=== PATIENT | female | born 1955 | race Caucasian/White ===

== ENCOUNTER 2021-12-02 17:20 | Inpatient (IN) | payer BC, MEDICARE ==
[~2021-12-02] VITALS: Ht 172.7 cm; Wt 118.4 kg
[2021-12-02] MEDS ORDERED: ONDANSETRON 4 MG/2 ML (SDV) Z0FRAN IV PRN (18:15)
[2021-12-02] MEDS ORDERED: ACETAMINOPHEN 325 MG TABLET PO PRN (18:15)
[2021-12-02] MEDS ORDERED: MELATONIN 3 MG TABLET PO PRN (18:15)
[2021-12-02] MEDS ORDERED: ANTACID SUSP 30 ML UDC (MYLANTA) PO PRN (18:15)
[2021-12-02] MEDS ORDERED: diphenhydrAMINE 25 MG TAB (BENADRYL) PO PRN (18:15)
[2021-12-02] MEDS ORDERED: polyethylene glycoL POWDER 17 GM (MIRALAX) PACK PO PRN (18:15)
[2021-12-02] MEDS ORDERED: ONDANSETRON 4 MG (ZOFRAN) ORAL DISSOLVE TAB PO PRN (18:15)
[2021-12-02 21:30] VITALS: BP 125/66
[2021-12-02] MEDS ORDERED: ATOR20TA66 PO (21:42)
[2021-12-02] MEDS ORDERED: ROPI1TAB PO (21:42)
[2021-12-02] MEDS ORDERED: INSU100V5 SQ (21:42)
[2021-12-02] MEDS ORDERED: GABA300S2 PO (21:42)
[2021-12-02 21:45] VITALS: BP 125/63
[2021-12-02] MEDS: GABAPENTIN 300 MG (NEURONTIN) CAP PO SCH (23:14)
[2021-12-02] MEDS: SENNOSIDES 8.6 MG (SENOKOT) TAB PO SCH (23:14)
[2021-12-02] MEDS: DOCUSATE SODIUM 100 MG (COLACE) CAP PO SCH (23:14)
[2021-12-02] MEDS: inSUlin ASPART (NovoLOG) 1 UNIT/0.01 ML (CHARGE PER UNIT) SC SCH (23:15)
[2021-12-03] VITALS (16 sets, daily range): BP systolic 106–128; BP diastolic 46–76
[2021-12-03 05:15] LABS: BASOPHILS % (AUTO) 0 % (0-10); EOSINOPHILS # (AUTO) 0.1 10^3/uL (0.0-0.3); EOSINOPHILS % (AUTO) 1 % (0-10); HEMATOCRIT 43 % (35-52); HEMOGLOBIN 12.4 g/dL (11.5-16.0); LYMPHOCYTES # (AUTO) 1.9 10^3/uL (1.0-4.0); LYMPHOCYTES % (AUTO) 24 % (12-44); MEAN CORPUSCULAR HEMOGLOBIN 25 pg (25-34); MEAN CORPUSCULAR HGB CONC 29 g/dL (32-36); MEAN CORPUSCULAR VOLUME 87 fL (80-99); MEAN PLATELET VOLUME 10.3 fL (9.0-12.2); MONOCYTES # (AUTO) 0.5 10^3/uL (0.0-1.0); MONOCYTES % (AUTO) 7 % (0-12); NEUTROPHILS # (AUTO) 5.1 10^3/uL (1.8-7.8); NEUTROPHILS % (AUTO) 67 % (42-75); PLATELET COUNT 224 10^3/uL (130-400); WHITE BLOOD COUNT 7.7 10^3/uL (4.3-11.0)
[2021-12-03 05:31] LABS: POTASSIUM 4.3 MMOL/L (3.6-5.0)
[2021-12-03 05:32] LABS: CALCIUM 8.1 MG/DL (8.5-10.1)
[2021-12-03 05:36] LABS: CREATININE SERUM 0.81 MG/DL (0.60-1.30)
[2021-12-03 05:38] LABS: MAGNESIUM 2.1 MG/DL (1.6-2.4)
[2021-12-03] MEDS: KCL 20 MEQ TAB (K-DUR) PO SCH (06:36)
[2021-12-03] MEDS: inSUlin ASPART (NovoLOG) 1 UNIT/0.01 ML (CHARGE PER UNIT) SC SCH ×4 (06:36→20:45)
[2021-12-03] MEDS: POTASSIUM CL 10MEQ/50ML IVPB 50 ML IV SCH (06:36)
[2021-12-03] MEDS: MAGNESIUM 1 GM/100 ML IVPB 100 ML IV SCH (06:36)
[2021-12-03 07:23] LABS: TRIGLYCERIDES 90 MG/DL (<150); VLDL CHOLESTEROL 18 MG/DL (5-40)
[2021-12-03 07:28] LABS: CHOLESTEROL 120 MG/DL (< 200)
[2021-12-03 07:29] LABS: HDL CHOLESTEROL 32 MG/DL (40-60)
[2021-12-03] MEDS ORDERED: NS IV 1000 ML 1,000 ML ONE (08:35)
[2021-12-03] MEDS ORDERED: LIDOCAINE 1% INJ 20 ML 20 ML VIAL ONE (08:35)
[2021-12-03] MEDS ORDERED: HEParin (CATH LAB) 2,000 ML IV ONE (08:35)
[2021-12-03] MEDS ORDERED: fentaNYL INJ 100 MCG/2 ML AMP ONE (08:41)
[2021-12-03] MEDS ORDERED: MIDAZOLAM 5 MG/5 ML (VERSED) VIAL ONE (08:41)
[2021-12-03] MEDS ORDERED: VERAPAMIL 5 MG/2 ML (CALAN) VIAL IV ONE (08:41)
[2021-12-03] MEDS ORDERED: HEParin 1000 UNIT/ML (10ML VIAL) FOR BOLUS ONE (08:41)
[2021-12-03] MEDS ORDERED: NITRO DRIP 25000 MCG/D5W 250 ML IV ONE (08:42)
--- NOTE | 2021-12-03 08:43 | Consultation-Cardiology ---
HPI-Cardiology Cardiology Consultation: Date of Consultation 12/03/2021 Date of Admission 12/02/2021 Attending Physician Cuca Hood MD Admitting Physician Dameon Finley DO Consulting Physician WHIT BAEZ JR, MD HPI: Time Seen by a Provider: 08:41 Chief Complaint: Reason for consultation: Non-ST elevation myocardial infarction. I had the pleasure of seeing [place] on the cardiac stepdown unit at [facility] in [place], [place] this morning. She has no previously known history of coronary artery disease but does have cardiac risk factors of type 2 diabetes me llitus, hyperlipidemia and cigarette smoking. She was recently told to start taking atorvastatin but has not yet started this medication. She has chronic dyspnea on exertion which she relates is due to her cigarette smoking and underlying chronic obstructive pulmonary disease. 3 days ago she developed substernal chest discomfort. She describes this as a pain in the center of her chest. She denies radiation or associated symptoms. Nothing seemed to make this better or worse. She did not seek immediate medical attention. Yesterday the chest discomfort persisted so she went to the emergency room in [place], [place]. She was apparently found to have an elevated troponin level and was sent to our hospital for further evaluation. In the outside emergency room she was given 1 sublingual nitroglycerin and her chest discomfort resolved. Last evening while she was in bed at our hospital, she had another episode of chest pain but did not tell the nurse. The second episode of chest pain resolved spontaneously after short period of time. She has occasional paroxysmal nocturnal dyspnea but denies orthopnea. She does not sleep well due to restless leg syndrome and peripheral neuropathy. She denies palpitations, lightheadedness, or syncope. She has chronic, mild bilateral lower extremity edema which has been unchanged. Because of the non-ST elevation myocardial infarction, a cardiology consultation was requested. Certain portions of this document may have been dictated utilizing voice recognition technology. Inherent to this technology, typographical and grammatical errors may exist. As much as I am diligent to identify and correct these mistakes, some errors may remain in the document. Review of Systems-Cardiology Review of Systems Other comments Review of 10 organ systems is as per the history of present illness, otherwise negative. STJ-Njdiux-Rhoroz Hx Patient Social History Marrital Status: Smoking Status: Current Everyday Smoker Have you traveled recently?: No Alcohol Use?: No Pt feels they are or have been: Yes Tobacco type used: Cigarettes Immunizations Up To Date Date of Influenza Vaccine: Sep 18, 2021 Past Medical History PMH As described under Assessment. Family Medical History Family Medical History: The patient does not know of any family history of premature coronary artery disease in first-degree relatives. She believes her father had a myocardial infarction but he was in his 70s. Allergies and Home Medications Allergies Coded Allergies: No Allergy Information Available (Unverified , 12/02/21) Patient Home Medication List Home Medication List Reviewed: Yes Atorvastatin Calcium (Atorvastatin Calcium) 20 Mg Tablet, 20 MG PO DAILY, (Reported) Entered as Reported by: Anna Cruz on 12/02/212141 Last Action: New Order Gabapentin (Gabapentin) 300 Mg/6 Ml Solution, 900 MG PO HS, (Reported) Entered as Reported by: Anna Cruz on 12/02/212141 Last Action: New Order Insulin Determir (Levemir) 1,000 Units/10 Ml Soln, 20 UNITS SQ HS, (Reported) Entered as Reported by: Anna Cruz on 12/02/212141 Last Action: New Order Ropinirole HCl (Ropinirole HCl) 1 Mg Tablet, 1 MG PO DAILY, (Reported) Entered as Reported by: Anna Cruz on 12/02/212141 Last Action: New Order Exam Vital Signs Vital Signs Date Time Temp Pulse Resp B/P (MAP) Pulse Ox O2 Delivery O2 Flow Rate FiO2 12/03/21 08:00 36.3 73 24 116/66 (83) 100 Nasal Cannula 2.00 Physical Exam General: Alert. No acute distress. Well nourished and appears stated age. She is morbidly obese. Eye: Extraocular movements are intact. Conjunctivae are clear. There are no xanthelasma. HENT: Normocephalic. Atraumatic. Carotid pulsations 2/2 without bruits. Neck: Jugular venous pressure does not appear elevated. No thyromegaly a ppreciated. Respiratory: Lungs are clear to auscultation. Respirations are non-labored. Breath sounds are equal. Symmetrical chest wall expansion. Cardiovascular: Normal rate. Regular rhythm. No murmur. No gallop. Point of maximal impulse is not appear displaced. Good pulses equal in all extremities. No edema. Gastrointestinal: Soft. Normal bowel sounds. Skin: Skin turgor is normal. There is no pallor. Musculoskeletal: No kyphosis or scoliosis appreciated. Neurologic: Alert and oriented to person, place, time. Cranial nerves 3-12 appear grossly intact. The patient has good motor tone strength in the upper and lower extremities bilaterally. Psychiatric: Cooperative. Appropriate mood & affect. Labs Laboratory Tests Test 12/02/21 21:37 12/02/21 23:20 12/03/21 05:05 Range/Units Glucometer 164 H 70-110 MG/DL Troponin I 6.194 *H <0.028 NG/ML White Blood Count 7.7 4.3-11.0 10^3/uL Red Blood Count 4.99 3.80-5.11 10^6/uL Hemoglobin 12.4 11.5-16.0 g/dL Hematocrit 43 35-52 % Mean Corpuscular Volume 87 80-99 fL Mean Corpuscular Hemoglobin 25 25-34 pg Mean Corpuscular Hemoglobin Concent 29 L 32-36 g/dL Red Cell Distribution Width 15.6 H 10.0-14.5 % Platelet Count 224 130-400 10^3/uL Mean Platelet Volume 10.3 9.0-12.2 fL Immature Granulocyte % (Auto) 0 % Neutrophils (%) (Auto) 67 42-75 % Lymphocytes (%) (Auto) 24 12-44 % Monocytes (%) (Auto) 7 0-12 % Eosinophils (%) (Auto) 1 0-10 % Basophils (%) (Auto) 0 0-10 % Neutrophils # (Auto) 5.1 1.8-7.8 10^3/uL Lymphocytes # (Auto) 1.9 1.0-4.0 10^3/uL Monocytes # (Auto) 0.5 0.0-1.0 10^3/uL Eosinophils # (Auto) 0.1 0.0-0.3 10^3/uL Basophils # (Auto) 0.0 0.0-0.1 10^3/uL Immature Granulocyte # (Auto) 0.0 0.0-0.1 10^3/uL Sodium Level 140 135-145 MMOL/L Potassium Level 4.3 3.6-5.0 MMOL/L Chloride Level 104 98-107 MMOL/L Carbon Dioxide Level 28 21-32 MMOL/L Anion Gap 8 5-14 MMOL/L Blood Urea Nitrogen 13 7-18 MG/DL Creatinine 0.81 0.60-1.30 MG/DL Estimat Glomerular Filtration Rate 70 BUN/Creatinine Ratio 16 Glucose Level 144 H 70-105 MG/DL Calcium Level 8.1 L 8.5-10.1 MG/DL Magnesium Level 2.1 1.6-2.4 MG/DL Triglycerides Level 90 <150 MG/DL Cholesterol Level 120 < 200 MG/DL LDL Cholesterol Direct 74 1-129 MG/DL VLDL Cholesterol 18 5-40 MG/DL HDL Cholesterol 32 L 40-60 MG/DL Radiology ECHOCARDIOGRAM (12/03/2021): 1. This is a technically difficult study due to poor image quality secondary to patient's body habitus. 2. Left ventricle: The cavity size is normal. Wall thickness is normal. Systolic function is normal. The estimated ejection fraction is 55-60%. Regional wall motion abnormalities cannot be excluded due to poor endocardial definition. Left ventricular diastolic function parameters are normal. 3. Pulmonary arteries: The pulmonary artery pressure cannot be estimated on this study due to inadequate tricuspid regurgitant envelope. ECG Impression ECG Comment Pending. Diagnosis/Problems Diagnosis/Problems (1) Non-ST elevation myocardial infarction (NSTEMI), initial care episode Assessment & Plan: She appears to be suffering a non-ST elevation myocardial infarction. Her chest discomfort is now resolved. Her echocardiogram shows normal ejection fraction. I recommend further evaluation with a cardiac catheterization which we will go ahead and proceed with this morning. I have explained the benefits and risks of the procedure to the patient and she is in agreement to proceed. She will be placed on the usual guideline directed medical therapy. (2) Mixed hyperlipidemia Assessment & Plan: A lipid panel has been ordered and is pending. I will start her on intensive dose statin medication due to the acute myocardial infarction. (3) Morbid obesity Assessment & Plan: She needs to work on weight loss. (4) Cigarette smoker Assessment & Plan: She needs to work on smoking cessation. She was counseled in this regard. She states that she has recently cut down on smoking because she just has not felt like smoking. (5) Type 2 diabetes mellitus with complication Assessment & Plan: This will be managed by the hospitalist. A hemoglobin A1c is pending. (6) Chronic obstructive pulmonary disease Assessment & Plan: I suspect this is what is causing the patient's dyspnea. Chest x-ray is pending WHIT BAEZ JR, MD Dec 03, 2021 08:43
[2021-12-03] MEDS: SENNOSIDES 8.6 MG (SENOKOT) TAB PO SCH ×2 (08:48→19:56)
[2021-12-03] MEDS: DOCUSATE SODIUM 100 MG (COLACE) CAP PO SCH ×2 (08:48→19:55)
--- NOTE | 2021-12-03 09:04 | Diagnostic Imaging Report ---
EXAMINATION: PA and lateral chest at 8:53 AM INDICATION: Chest pain There are no prior studies available for comparison. The heart size is at the upper limits of normal or slightly enlarged. The central pulmonary vascularity is somewhat prominent but there is no evidence for failure, pneumonia or for a pleural effusion. The mediastinum is not widened. The osseous structures are intact. IMPRESSION: There is borderline cardiomegaly but there is no evidence for an acute cardiopulmonary abnormality. Dictated by: Dictated on workstation # [id number]
[2021-12-03] MEDS ORDERED: ASPIRIN E.C. 81 MG (ECOTRIN) TAB PO ONE (09:15)
[2021-12-03] MEDS ORDERED: NS IV 1000 ML 1,000 ML IV ONE (09:15)
--- NOTE | 2021-12-03 09:46 | Pre-Op Note & Conscious Sedat ---
Pre-Operative Progress Note H&P Reviewed The H&P was reviewed, patient examined and no changes noted. Date H&P Reviewed: Dec 03, 2021 Time H&P Reviewed: 09:46 Pre-Op Diagnosis: Non-ST elevation myocardial infarction Conscious Sedation Pre-Proced ASA Score 3 For ASA 3 and 4: Consider anesthesia and medical clearance. Also, for patients with a history of failed moderate sedation consider anesthesia. Airway Lungs Heart ASA score ASA 1: a normal healthy patient ASA 2: a patient with a mild systemic disease (mid diabetes, controlled hypertension, obesity ASA 3: a patient with a severe systemic disease that limits activity (angina, COPD, prior Myocardial infarction) ASA 4: a patient with an incapacitating disease that is a constant threat to life (CHF, renal failure) ASA 5: a moribund patient not expected to survive 24 hrs. (ruptured aneurysm) ASA 6: a declared brain- patient whose organs are being harvested. For emergent operations, add the letter E after the classification Mallampati Classification Grade 2 Sedation Plan Analgesia, Amnesia, Plan communicated to team members, Discussed options with patient/fam, Discussed risks with patient/fam The patient is an appropriate candidate to undergo the planned procedure, sedation, and anesthesia. The patient immediately re-assessed prior to indication. WHIT BAEZ JR, MD Dec 03, 2021 09:46
[2021-12-03] MEDS ORDERED: TICAGRELOR 90 MG TABLET (BRILINTA) PO ONE (10:17)
[2021-12-03] MEDS ORDERED: PATIENT MAY USE OWN MEDS, ALL PO SCH (10:45)
[2021-12-03] MEDS ORDERED: NS IV 1000 ML 1,000 ML IV SCH (10:45)
--- NOTE | 2021-12-03 10:48 | Cardiac Cath Report ---
CARDIAC CATHETERIZATION DATE OF PROCEDURE: 12/03/2021 INDICATION: Non-ST elevation myocardial infarction. HISTORY: The patient is a 66 year old female with no previously known history of coronary artery disease. She presented to an outside hospital with a 1 day history of chest pain. She was found to have an elevated troponin level and was transferred to our hospital for further treatment and evaluation. Overnight, she had another episode of chest pain that resolved spontaneously. Her troponin level in our hospital was also elevated consistent with a non-ST elevation myocardial infarction. She is now referred for further evaluation with a cardiac catheterization. PROCEDURES PERFORMED: 1. Left heart catheterization with hemodynamic measurements. 2. Diagnostic diomede coronary angiography. 3. Drug-eluting stent placement from the proximal down to the mid right coronary artery for acute non-ST elevation myocardial infarction. PROCEDURE DESCRIPTION: After informed consent and in the fasting state, left heart catheterization was performed through the right radial artery utilizing a 6 Kosovan system by percutaneous approach. Standard 5 Kosovan Judi catheters were utilized for the diagnostic portion of the procedure. A 6 Kosovan JR4 guide catheter was utilized for the percutaneous coronary intervention. All catheters were exchanged over a guidewire. Following the procedure, a vascular band was applied to the radial artery access site and the sheath was removed with good hemostasis. RESULTS: HEMODYNAMICS: The aortic pressure was 124/51 mmHg. The left ventricular pressure was 130/0 mmHg with a left ventricular end-diastolic pressure of 21 mmHg. There was no significant pressure gradient upon pullback across aortic valve. CORONARY ANGIOGRAPHY: Left main coronary artery: Free of significant disease. Left anterior descending coronary artery: There was a 70% stenosis in the mid segment with DEYANIRA-3 flow. There were [id number] collaterals seen filling the distal right coronary artery. Left circumflex coronary artery: Free of significant disease. Ramus intermedius: There was a ramus intermedius branch which was free of significant disease. Right coronary artery: Dominant and totally occluded proximally with evidence of thrombus and DEYANIRA 0 flow. This was most likely of the ischemia related vessel for the non-ST elevation myocardial infarction. Once the vessel was open, it became apparent there was a 40% stenosis in the midsegment. There was a 70% stenosis in the distal segment just distal to the takeoff of the posterior descending artery. This was essentially a bifurcation lesion with a Green classification of 0, 1, 0. However, in this area, the vessel was approximately 2 mm in maximal diameter. PERCUTANEOUS CORONARY INTERVENTION: Percutaneous coronary intervention was carried out on the right coronary artery through a 6 Kosovan FL 4 guide catheter. The lesion was successfully crossed with a Whisper medium support guidewire. I subsequently performed: Angioplasty with a 2.5 x 12 mm Trek balloon at a pressure up to 10 batool for several inflations. Flow was restored. I subsequently deployed a 3 x 23 mm drug-eluting Xience Skypoint stent and a pressure of 20 batool. Following placement of the stent, there appeared to be a possible dissection just distal to the distal edge of the stent. I deployed an additional 3 x 12 mm drug-eluting Xience Skypoint stent overlapping the distal edge of the previously placed stent at a pressure of 16 batool. I then postdilated the overlapped segment with the stent balloon at a pressure of 20 batool. Following stent placement, there was 0% residual stenosis with DEYANIRA-3 flow. IMPRESSION: 1. Normal central aortic pressure with elevated left ventricular end-diastolic pressure. 2. The right coronary artery was totally occluded proximally with hypertensive thrombus and DEYANIRA 0 flow. This was the ischemia related vessel for the acute, non-ST elevation myocardial infarction. 3. Status post drug-eluting stent placement to the mid right coronary artery with a 3 x 23 mm Xience Skypoint stent and a 3 x 12 mm Xience Skypoint stent with both stents being overlapped with 0% residual stenosis and DEYANIRA-3 flow. 4. There is moderate to severe residual stenosis in the mid left anterior descending coronary artery and distal right coronary artery as outlined above. The lesion in the left anterior descending coronary artery may need to be addressed at a later point in time. I did not perform intervention on this lesion today because the patient was becoming restless on the cardiac catheterization laboratory table. The lesion in the right coronary artery may be too small for revascularization. 5. The patient is known to have normal left ventricular systolic function with an estimated ejection fraction of 55-60% by echocardiogram performed prior to this procedure. Certain portions of this document may have been dictated utilizing voice recognition technology. Inherent to this technology, typographical and grammatical errors may exist. As much as I am diligent to identify and correct these mistakes, some errors may remain in the document. WHIT BAEZ JR, MD Dec 03, 2021 10:48
[2021-12-03] MEDS ORDERED: GABA300C PO (14:02)
[2021-12-03] MEDS ORDERED: HUM100VI15 SQ (14:02)
--- NOTE | 2021-12-03 20:13 | History & Physical-Hospitalist ---
History of Present Illness HPI/Chief Complaint Gia Wilder is a 66 year old female with PMH HTN, HLD, T2DM, CAD s/p CABG, tobacco abuse, obesity, who presented with chest pain. She described pressure in the center of her chest without radiation. She denies shortness of breath and cough. She denies palpitations. She denies diaphoresis. She denies nausea and vomiting. She went to the [facility] ER and was found to have an elevated troponin. She was transferred to [facility] for ongoing medical care. Source: patient Exam Limitations: no limitations Date Seen 12/03/21 Time Seen by a Provider: 09:00 Attending Physician Corwin Kaufman MD PCP Dameon Finley DO Referring Physician Date of Admission Dec 02, 2021 at 21:20 Home Medications & Allergies Home Medications Reviewed patient Home Medication Reconciliation performed by pharmacy medication reconciliations furniture technician and/or nursing. Patients Allergies have been reviewed. Allergies Allergies Coded Allergies metformin (Verified Allergy, Unknown, 12/03/21) tramadol (Verified Allergy, Unknown, Itching, 12/03/21) Past Wlcoggs-Lxerkz-Kxunqn Hx Patient Social History Marrital Status: Tobacco Use?: Yes Tobacco type used: Cigarettes Smoking Status: Current Everyday Smoker Smokeless Tobacco Frequency: Current Everyday User Use of E-Cig and/or Vaping dev: No Substance use?: No Alcohol Use?: No Pt feels they are or have been: Yes Immunizations Up To Date Date of Influenza Vaccine: Sep 18, 2021 Current Status status: No status: No Advance Directives: No Communicates: Verbally Primary Language: Omani Preferred Spoken Language: Omani Is interpretation needed?: No Sensory deficits: Vision impairment Implanted or Applied Medical D: None Family Medical History No Pertinent Family Hx Review of Systems Constitutional: no symptoms reported EENTM: no symptoms reported Respiratory: no symptoms reported Cardiovascular: chest pain Gastrointestinal: no symptoms reported Genitourinary: no symptoms reported Musculoskeletal: no symptoms reported Skin: no symptoms reported Psychiatric/Neurological: No Symptoms Reported Physical Exam Physical Exam Vital Signs Vital Signs - First Documented 12/02/21 12/03/21 21:30 00:00 Temp 36.7 Pulse 68 Resp 26 B/P (MAP) 125/66 (85) Pulse Ox 97 O2 Delivery Nasal Cannula O2 Flow Rate 2.00 Capillary Refill : Less Than 3 Seconds Height, Weight, BMI Height: '" Weight: lbs. oz. kg; 39.69 BMI Method: General Appearance: No Apparent Distress, Obese HEENT: PERRL/EOMI, Pharynx Normal Neck: Normal Inspection, Supple Respiratory: Lungs Clear, Normal Breath Sounds, No Respiratory Distress Cardiovascular: Regular Rate, Rhythm, No Edema, No Murmur Gastrointestinal: Normal Bowel Sounds, Non Tender, Soft Extremity: Normal Inspection, Non Tender, No Pedal Edema Neurologic/Psychiatric: Alert, Oriented x3, No Motor/Sensory Deficits, Normal Mood/Affect Results Results/Procedures Labs Laboratory Tests 12/04/21 04:35 Patient resulted labs reviewed. Imaging: Reviewed Imaging Report Assessment/Plan Admission Diagnosis NSTEMI Admission Status: Inpatient Order (span 2 midnights) Reason for Inpatient Admission: Cardiac monitoring and evaluation Assessment and Plan NSTEMI CAD s/p CABG HTN HLD Cardiology consulted Troponin elevated Left heart cath today Tobacco abuse Recommend cessation T2DM Sliding scale insulin Obesity Clinically significant, no acute management needs DVT prophylaxis: Lovenox Diagnosis/Problems Diagnosis/Problems (1) NSTEMI (non-ST elevation myocardial infarction) Status: Acute (2) Coronary artery disease with unstable angina pectoris Status: Acute Qualifiers: Coronary Disease-Associated Artery/Lesion type: bypass graft, autologous vein Qualified Codes: I25.710 - Atherosclerosis of autologous vein coronary artery bypass graft(s) with unstable angina pectoris (3) Morbid obesity Status: Chronic (4) Mixed hyperlipidemia Status: Chronic (5) Type 2 diabetes mellitus with complication Status: Chronic (6) Cigarette smoker Status: Chronic CORWIN KAUFMAN MD Dec 03, 2021 20:13
[2021-12-03] MEDS: TICAGRELOR 90 MG TABLET (BRILINTA) PO SCH (20:45)
[2021-12-03] MEDS: GABAPENTIN 300 MG (NEURONTIN) CAP PO SCH (20:46)
[2021-12-03] MEDS ORDERED: rOPINIRole 1 MG (REQUIP) TABLET ONE (20:56)
[2021-12-03] MEDS ORDERED: ROSUVASTATIN 20 MG (CRESTOR) TABLET PO SCH (21:00)
[2021-12-03] MEDS ORDERED: rOPINIRole 1 MG (REQUIP) TABLET PO ONE (21:00)
[2021-12-04 03:25] VITALS: BP 104/54
[2021-12-04 05:05] LABS: HEMATOCRIT 42 % (35-52); HEMOGLOBIN 12.1 g/dL (11.5-16.0); MEAN CORPUSCULAR HEMOGLOBIN 25 pg (25-34); MEAN CORPUSCULAR HGB CONC 29 g/dL (32-36); MEAN CORPUSCULAR VOLUME 87 fL (80-99); MEAN PLATELET VOLUME 10.1 fL (9.0-12.2); PLATELET COUNT 223 10^3/uL (130-400); WHITE BLOOD COUNT 7.5 10^3/uL (4.3-11.0)
[2021-12-04 05:19] LABS: POTASSIUM 4.1 MMOL/L (3.6-5.0)
[2021-12-04 05:24] LABS: CREATININE SERUM 0.77 MG/DL (0.60-1.30)
[2021-12-04] MEDS: inSUlin ASPART (NovoLOG) 1 UNIT/0.01 ML (CHARGE PER UNIT) SC SCH (05:25)
[2021-12-04] MEDS: POTASSIUM CL 10MEQ/50ML IVPB 50 ML IV SCH (05:25)
[2021-12-04] MEDS: MAGNESIUM 1 GM/100 ML IVPB 100 ML IV SCH (05:25)
[2021-12-04] MEDS: KCL 20 MEQ TAB (K-DUR) PO SCH (05:25)
[2021-12-04 05:27] LABS: MAGNESIUM 2.3 MG/DL (1.6-2.4)
[2021-12-04] MEDS: TICAGRELOR 90 MG TABLET (BRILINTA) PO SCH (07:50)
[2021-12-04] MEDS: DOCUSATE SODIUM 100 MG (COLACE) CAP PO SCH (07:50)
[2021-12-04] MEDS: SENNOSIDES 8.6 MG (SENOKOT) TAB PO SCH (07:50)
[2021-12-04 08:00] VITALS: BP 116/52
[2021-12-04] MEDS ORDERED: ASPIRIN E.C. 81 MG (ECOTRIN) TAB PO SCH (09:00)
--- NOTE | 2021-12-04 09:13 | Cardiology Progress Note ---
Progress Note-Cardiology Events since last exam Date Seen by Provider: Dec 04, 2021 Time Seen by Provider: 09:10 Events since last exam I am following her due to non-ST elevation myocardial infarction. She denies any further chest discomfort. She wants to go home. She denies dyspnea at rest. She denies palpitations, syncope, or ankle edema. She plans to follow-up with me in my office after discharge. She will try her best to quit smoking. Certain portions of this document may have been dictated utilizing voice recognition technology. Inherent to this technology, typographical and grammatical errors may exist. As much as I am diligent to identify and correct these mistakes, some errors may remain in the document. Vitals Last set of Vitals Signs Vital Signs 12/04/21 12/04/21 08:00 09:00 Temp 37.1 Pulse 83 Resp 12 B/P (MAP) 116/52 (73) Pulse Ox 96 O2 Delivery Nasal Cannula O2 Flow Rate 2.00 Labs Labs Laboratory Tests 12/04/21 04:35 Exam Vital Signs Vital Signs Date Time Temp Pulse Resp B/P (MAP) Pulse Ox O2 Delivery O2 Flow Rate FiO2 12/04/21 09:00 Nasal Cannula 2.00 12/04/21 08:00 37.1 83 12 116/52 (73) 96 Physical Exam General: Alert. No acute distress. She appears older than her stated age. Eye: No xanthelasma. HENT: Normocephalic. Neck: Jugular venous pressure does not appear elevated. Respiratory: Lungs are clear to auscultation. Respirations are non-labored. Breath sounds are equal. Symmetrical chest wall expansion. Cardiovascular: Normal rate. Regular rhythm. No murmur. No gallop. No edema. Gastrointestinal: Soft. Normal bowel sounds. Skin: Warm. Dry. Neurologic: Alert and oriented to person, place, time. Cranial nerves 3-11 grossly intact. Psychiatric: Cooperative. She appears somewhat anxious.. Labs Laboratory Tests Test 12/03/21 15:42 12/03/21 20:23 12/04/21 04:35 12/04/21 10:35 Range/Units Glucometer 146 H 180 H 180 H 70-110 MG/DL White Blood Count 7.5 4.3-11.0 10^3/uL Red Blood Count 4.81 3.80-5.11 10^6/uL Hemoglobin 12.1 11.5-16.0 g/dL Hematocrit 42 35-52 % Mean Corpuscular Volume 87 80-99 fL Mean Corpuscular Hemoglobin 25 25-34 pg Mean Corpuscular Hemoglobin Concent 29 L 32-36 g/dL Red Cell Distribution Width 16.0 H 10.0-14.5 % Platelet Count 223 130-400 10^3/uL Mean Platelet Volume 10.1 9.0-12.2 fL Sodium Level 140 135-145 MMOL/L Potassium Level 4.1 3.6-5.0 MMOL/L Chloride Level 103 98-107 MMOL/L Carbon Dioxide Level 29 21-32 MMOL/L Anion Gap 8 5-14 MMOL/L Blood Urea Nitrogen 13 7-18 MG/DL Creatinine 0.77 0.60-1.30 MG/DL Estimat Glomerular Filtration Rate 75 BUN/Creatinine Ratio 17 Glucose Level 119 H 70-105 MG/DL Calcium Level 8.0 L 8.5-10.1 MG/DL Magnesium Level 2.3 1.6-2.4 MG/DL Diagnosis/Problems Diagnosis/Problems (1) Non-ST elevation myocardial infarction (NSTEMI), initial care episode Assessment & Plan: She suffered a non-ST elevation myocardial infarction. Her chest discomfort is now resolved. Her echocardiogram showed normal ejection fraction. She was treated with drug-eluting stent to the saphenous vein graft to the right coronary artery. She will need to continue dual antiplatelet therapy for a minimum of 1 year's time. I told her if Brilinta is too expensive after she gets 30 days free, I can change this over to clopidogrel in 1 month. I have also ordered low-dose carvedilol. I previously placed her on intensive dose statin medication. (2) Mixed hyperlipidemia Assessment & Plan: Her LDL level was actually reasonably controlled based on result from this admission. I started her on intensive dose statin medication due to the acute myocardial infarction. (3) Morbid obesity Assessment & Plan: She needs to work on weight loss. (4) Cigarette smoker Assessment & Plan: She needs to work on smoking cessation. She was counseled in this regard. She states that she has recently cut down on smoking because she just has not felt like smoking. (5) Type 2 diabetes mellitus with complication Assessment & Plan: This was managed by the hospitalist. HbA1c is reasonably well controlled. (6) Chronic obstructive pulmonary disease Assessment & Plan: I suspect this is what is causing the patient's dyspnea. Chest x-ray was clear. WHIT BAEZ JR, MD Dec 04, 2021 09:13
[2021-12-04] MEDS ORDERED: NITROGLYCERIN 0.4 MG SL TABS BTL 25'S SL PRN (09:15)
[2021-12-04] MEDS ORDERED: NITR0.4T42 SL (09:45)
[2021-12-04] MEDS ORDERED: ASPI-1238 PO (09:45)
[2021-12-04] MEDS ORDERED: ROSU20TA32 PO (09:45)
[2021-12-04] MEDS ORDERED: TICA90TA PO (09:45)
[2021-12-04] MEDS ORDERED: CARV3.122 PO (10:12)
--- NOTE | 2021-12-05 08:59 | Discharge Summary ---
Discharge Summary Hospital Course Was the Problem List Reviewed?: Yes Problems/Dx: (1) NSTEMI (non-ST elevation myocardial infarction) Status: Acute (2) Coronary artery disease with unstable angina pectoris Status: Acute Qualifiers: Qualified Codes: I25.710 - Atherosclerosis of autologous vein coronary artery bypass graft(s) with unstable angina pectoris (3) Morbid obesity Status: Chronic (4) Mixed hyperlipidemia Status: Chronic (5) Type 2 diabetes mellitus with complication Status: Chronic (6) Cigarette smoker Status: Chronic Hospital Course Date of Admission: Dec 02, 2021 at 21:20 Admission Diagnosis : NSTEMI Family Physician/Provider: Dameon Finley DO Date of Discharge: 12/04/21 Discharge Diagnosis: NSTEMI, CAD Hospital Course: Gia Wilder is a 66 year old female with PMH HTN, HLD, T2DM, CAD s/p CABG, tobacco abuse, obesity, who presented with chest pain and was admitted with NSTEMI. Cardiology was consulted and assisted with her care. She underwent a left heart catheterization and had two stents placed in her saphenous vein to right coronary artery graft. She was started on aspirin and Brilinta. She was also transiitoned to Crestor. She was started on low dose Coreg. She was instructed to stop smoking. She should work on weight loss. 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 She was discharged home in stable condition. Labs and Pending Lab Test: Laboratory Tests 12/04/21 10:35: Glucometer 180H Home Meds Active Carvedilol 3.125 Mg Tablet 3.125 Mg PO BID Aspirin EC (Aspirin) 81 Mg Tablet.dr 81 Mg PO DAILY Nitroglycerin 0.4 Mg Tab.subl 0.4 Mg SL NEEDED PRN Rosuvastatin Calcium 20 Mg Tablet 20 Mg PO HS Brilinta (Ticagrelor) 90 Mg Tablet 90 Mg PO BID Reported Novolin 70-30 100 Unit/ml Vial (Insulin NPH Hum/Reg Insulin Hm) 100 Unit/1 Ml Vial 20 Unit SQ DAILY Neurontin (Gabapentin) 300 Mg Capsule 900 Mg PO HS TAKES 3 (300MG) CAPS Ropinirole HCl 1 Mg Tablet 2 Mg PO HS TAKES 2 (1MG) TABS Assessment/Pt Instructions Take medications as prescribed. Follow up with your PCP and Cardiology. Return with worsening chest pain, shortness of breath, or if you feel like you are getting worse. Discharge Planning: <30 minutes discharge planning Discharge Instructions Discharge Diet: ADA Diet Activity as Tolerated: Yes Consultations Cardiology Discharge Physical Examination Vital Signs Vital Signs Date Time Temp Pulse Resp B/P (MAP) Pulse Ox O2 Delivery O2 Flow Rate FiO2 12/04/21 09:00 Nasal Cannula 2.00 12/04/21 08:00 37.1 83 12 116/52 (73) 96 General Appearance: No Apparent Distress, Obese HEENT: PERRL/EOMI, Pharynx Normal Respiratory: Lungs Clear, Normal Breath Sounds, No Respiratory Distress Cardiovascular: Regular Rate, Rhythm, No Edema, No Murmur Gastrointestinal: Normal Bowel Sounds, Non Tender, Soft Extremity: Normal Inspection, Non Tender, No Pedal Edema Skin: Normal Color, Warm/Dry Neurologic/Psychiatric: Alert, Oriented x3, No Motor/Sensory Deficits, Normal Mood/Affect Allergies: Coded Allergies: metformin (Verified Allergy, Unknown, 12/03/21) tramadol (Verified Allergy, Unknown, Itching, 12/03/21) Discharge Summary Date of Admission Dec 02, 2021 at 21:20 Date of Discharge Dec 04, 2021 at 10:50 Discharge Date: Dec 04, 2021 Discharge Time: 10:50 Admission Diagnosis NSTEMI Consults/Procedures Consulations Cardiology Procedures Left heart catheterization with coronary stenting Discharge Diagnosis NSTEMI CAD (1) NSTEMI (non-ST elevation myocardial infarction) Status: Acute (2) Coronary artery disease with unstable angina pectoris Status: Acute Qualifiers: Qualified Codes: I25.710 - Atherosclerosis of autologous vein coronary artery bypass graft(s) with unstable angina pectoris (3) Morbid obesity Status: Chronic (4) Mixed hyperlipidemia Status: Chronic (5) Type 2 diabetes mellitus with complication Status: Chronic (6) Cigarette smoker Status: Chronic CORWIN KAUFMAN MD Dec 05, 2021 08:59
== END 2021-12-04 10:50 | disposition home or self-care (01) | DRG 247 ==
LOC: CSD 21:20
PROVIDERS: ADMIT Internal Medicine; ATTEND Internal Medicine
PROC: 027136Z Dilation of Coronary Artery, Two Arteries with Three Drug-eluting Intraluminal Devices, Percutaneous Approach (ICD-10-PCS; principal; 2021-12-03)
PROC: 4A023N7 Measurement of Cardiac Sampling and Pressure, Left Heart, Percutaneous Approach (ICD-10-PCS; 2021-12-03)
PROC: B2111ZZ Fluoroscopy of Multiple Coronary Arteries using Low Osmolar Contrast (ICD-10-PCS; 2021-12-03)
DX: I21.4 Non-ST elevation (NSTEMI) myocardial infarction (principal); I10 Essential (primary) hypertension; F17.210 Nicotine dependence, cigarettes, uncomplicated; E11.9 Type 2 diabetes mellitus without complications; I25.710 Atherosclerosis of autologous vein coronary artery bypass graft(s) with unstable angina pectoris; E66.01 Morbid (severe) obesity due to excess calories; E78.2 Mixed hyperlipidemia; J44.9 Chronic obstructive pulmonary disease, unspecified; Z95.1 Presence of aortocoronary bypass graft; Z68.39 Body mass index [BMI] 39.0-39.9, adult
CPT/HCPCS: 36415; 71046; 80048; 80061; 82947; 83036; 83735; 84484; 85025; 85027; 93005; 93306; 93458